=== PATIENT | male | born 1945 | race Two or more races ===

== ENCOUNTER 2017-10-24 10:45 | Observation (INO) | payer OTHER ==
--- NOTE | 2017-11-20 15:33 | GHP ---
[f rep st] PREOP HISTORY AND PHYSICAL DATE OF ADMISSION: 11/21/2017 HISTORY: This is a 72-year-old male who presents with left knee osteoarthritis. He has had a painfu l knee for many years, limiting motion and function. He has done viscosupplementation injections, he has tried bracing and has also tried physical therapy. His pain limits work activities, as well as recreation. Even activities of daily living alter his gait. His x-rays show significant left knee o steoarthritis that is tricompartment. His primary care physician is Dr. Javid Ibarra. PAST MEDICAL HISTORY: His surgical history includes a right rotator cuff repair, appendectomy, and l aparotomy for a bowel concern. MEDICATIONS: Terazosin 1 mg p.o. daily, Paxil 30 mg p.o. daily, and trazodone 150 mg p.o. ALLERGIES: He has no known drug allergies. SOCIAL HISTORY: He has still smokes about 4 cigarettes a day. REVIEW OF SYSTEMS: Negative for cardiopulmonary disease. PHYSICAL EXAMINATION: GENERAL: He is a well-developed, well-nourished male in no apparent distress. HEAD AND NECK: Normocephalic, atraumatic. CHEST: Clear. CARDIOVASCULAR: Regular rate and rhyth m. ABDOMEN: Soft. NEUROLOGIC: He is alert and oriented x3. EXTREMITIES: Examination of the left knee shows a small effusion. It has more varus alignment. It extends with about a 2 degree flexion contracture, bends about 120 degrees. Negative Mary Anne's but the endpoint is soft pseudolaxity medi ally. Lateral side is stable. NEUROVASCULAR: Exam is intact. X-rays show that the left knee has tricompartment osteoarthritis with degenerative lipping and subcho ndral sclerosis. There is narrowing of the joint space, especially in the medial compartment. There is an accessory ossicle near the patella. IMPRESSION: Left knee osteoarthritis. PLAN: Left total knee arthroplasty. Benefits and risks of surgery have been reviewed with the patie ra. He understands the risks include infection, damage to blood vessels or nerves, failure or loosen ing of components and need for revision, blood clot in the leg or lungs, bleeding and need for transf usion. I reviewed the rigorous nature of the rehabilitation. He has signed his consent form and wis hes to proceed. /[id number]/MODL
[2017-11-21] MEDS ORDERED: POVIDONE-IODINE 20 ML in SODIUM CL IRRIG SOLUTION 500 ML IRR ONE (06:00)
[2017-11-21] MEDS ORDERED: BUPI/epINEPH/KETOROLAC IU ONE (06:00)
[2017-11-21] MEDS ORDERED: ROPIVACAINE 0.2% 80 MG, EPINEPHrine 0.2 MG, KETOROLAC TROMETHAMINE 30 MG in SYRINGE 0 ML IU ONE (06:00)
[2017-11-21] MEDS ORDERED: TRANEXAMIC ACID 1,000 MG in NS (SYRINGE) 50 ML IV ONE (06:00)
[2017-11-21] MEDS ORDERED: LIDOCAINE 1% 2 ML INJ ONE (06:02)
[2017-11-21] MEDS ORDERED: ceFAZolin 2 GM/SWFI 2 GM/20 ML SYR IVP ONE ×2 (06:10→06:30)
[2017-11-21] MEDS ORDERED: DEXAMETHASONE 4 MG/ML VIAL IVP ONE (06:10)
[2017-11-21] MEDS ORDERED: ACETAMINOPHEN 325 MG TAB PO ONE (06:10)
[2017-11-21] MEDS ORDERED: GABAPENTIN 300 MG CAP PO ONE (06:10)
[2017-11-21] MEDS ORDERED: ONDANSETRON 4 MG/2 ML VIAL IVP ONE (06:10)
[2017-11-21] MEDS ORDERED: LR 1,000 ML IV ONE (06:10)
[2017-11-21] MEDS ORDERED: LIDOCAINE 1% 2 ML INJ ID PRN (06:10)
[2017-11-21] MEDS ORDERED: FAMOTIDINE 20 MG TAB PO ONE (06:10)
[2017-11-21] MEDS ORDERED: ceFAZolin 1 GM/5 ML SYR ONE (06:20)
[2017-11-21] MEDS ORDERED: MIDAZOLAM 2 MG/2 ML VIAL IVP ONE (07:18)
--- NOTE | 2017-11-21 07:18 | PDANEPAE ---
ANE History of Present Illness 72 yo for tka ANE Past Medical History - Cardiovascular History Hx Hypertension: No Hx Arrhythmias: No Hx Chest Pain: No Hx Coronary Artery / Peripheral Vascular Disease: Yes Hx CHF / Valvular Disease: No Hx Palpitations: No Cardiovascular History Comment: high chol - Pulmonary History Hx COPD: No Hx Asthma/Reactive Airway Disease: No Hx Recent Upper Respiratory Infection: No Hx Oxygen in Use at Home: No Hx Sleep Apnea: No Sleep Apnea Screening Result - Last Documented: Negative - Neurologic History Hx Cerebrovascular Accident: No Hx Seizures: No Hx Dementia: No - Endocrine History Hx Diabetes: No - Renal History Hx Renal Disorders: Yes Renal History Comment: BPH. ERECTILE DYSFUNCTION - Liver History Hx Hepatic Disorders: No - Neurological & Psychiatric Hx Hx Neurological and Psychiatric Disorders: Yes Neurological / Psychiatric History Comment: MILD ANXIETY - Cancer History Hx Cancer: No - Congenital Disorder History Hx Congenital Disorders: No - GI History Hx Gastrointestinal Disorders: No Gastrointestinal History Comment: reflux- on prilosec - Other Health History Other Health History: OSTEOARTHRITIS - Chronic Pain History Chronic Pain: Yes (LT KNEE) - Surgical History Prior Surgeries: TREVOR 07/2016. sm bowel resection 01/25/13 ANE Review of Systems Review of Systems: - Exercise capacity METS (RN): 4 METS ANE Patient History - Allergies Allergies/Adverse Reactions: oxycodone HCl [From OxyContin] Allergy (Intermediate, Verified 04/21/16 09:14) "freaks me out" - Home Medications Home medications: home medication list seen and reviewed Home Medications: PARoxetine HCL [Paxil 30mg (*)] 30 mg PO HS 07/10/12 [Last Taken 11/19/17] Multivitamins [Multivitamin (*)] 1 each PO DAILY 10/19/17 [Last Taken 11/18/17] Terazosin HCl [Hytrin 1 MG (*)] 3 mg PO HS 10/19/17 [Last Taken 11/20/17] traZODone [traZODone 150MG (*)] 150 mg PO HS 10/19/17 [Last Taken 11/18/17] - NPO status NPO Since - Liquids (Date): 11/21/17 NPO Since - Liquids (Time): 04:45 NPO Since - Solids (Date): 11/20/17 NPO Since - Solids (Time): 18:00 - Anes Hx Anes Hx: no prior problems - Smoking Hx Smoking Status: Light smoker - Family Anes Hx Family Hx Anesthesia Complications: none ANE Labs/Vital Signs - Vital Signs Blood Pressure: 140/78 Heart Rate: 61 Respiratory Rate: 18 O2 Sat (%): 93 Height: 5 ft 10 in Weight: 104.326 kg ANE Physical Exam - Airway Neck exam: FROM Mallampati Score: Class 2 Mouth exam: normal dental/mouth exam - Pulmonary Pulmonary: no respiratory distress - Cardiovascular Cardiovascular: regular rate and rhythym - ASA Status ASA Status: II ANE Anesthesia Plan Anesthesia Plan: spinal Regional Anesthesia: single shot NB
[2017-11-21] MEDS ORDERED: MIDAZOLAM 2 MG/2 ML VIAL ONE (07:19)
--- NOTE | 2017-11-21 07:19 | PDHPUP ---
History & Physical Update H&P update statement: This history and physical update is based on an assessment of the patient which was completed after admission or registration (within 24 hours), but prior to the surgery/procedure. H&P update: H&P reviewed & patient examined
[2017-11-21] MEDS ORDERED: PROPOFOL/EMULSION 500 MG/50 ML BOTTLE IV ONE (07:26)
[2017-11-21] MEDS ORDERED: PROPOFOL 200 MG/20 ML VIAL ONE (09:14)
[2017-11-21] MEDS ORDERED: ONDANSETRON 4 MG/2 ML VIAL IVP PRN ×2 (09:24→09:54)
[2017-11-21] MEDS ORDERED: NALOXONE HCL 0.4 MG/ML INJ IVP PRN (09:24)
[2017-11-21] MEDS ORDERED: PROMETHAZINE HCL 25 MG/ML INJ IVP PRN ×2 (09:24→09:54)
[2017-11-21] MEDS ORDERED: fentaNYL 100 MCG/2 ML INJ IVP PRN (09:24)
[2017-11-21] MEDS ORDERED: TEMAZEPAM 15 MG CAP PO PRN (09:54)
[2017-11-21] MEDS ORDERED: BISACODYL 10 MG SUPP PR PRN (09:54)
[2017-11-21] MEDS ORDERED: CYCLOBENZAPRINE 10 MG TAB PO PRN (09:54)
[2017-11-21] MEDS ORDERED: METOCLOPRAMIDE 10 MG/2 ML VIAL IVP PRN (09:54)
[2017-11-21] MEDS ORDERED: diphenhydrAMINE 25 MG CAP PO PRN (09:54)
[2017-11-21] MEDS ORDERED: oxyCODONE IR 5 MG TAB PO PRN (09:54)
[2017-11-21] MEDS ORDERED: ONDANSETRON DISINTEGRATING 4 MG TAB PO PRN (09:54)
[2017-11-21] MEDS ORDERED: MAGNESIUM HYDROXIDE 30 ML UDCUP PO PRN (09:54)
[2017-11-21] MEDS ORDERED: LACTULOSE 20 GM/30 ML UDCUP PO PRN (09:54)
[2017-11-21] MEDS ORDERED: PROMETHAZINE HCL 25 MG SUPPR PR PRN (09:54)
[2017-11-21] MEDS ORDERED: POLYETHYLENE GLYCOL 3350 17 GM PKT PO PRN (09:54)
[2017-11-21] MEDS ORDERED: DIPHENOXYLATE/ATROPINE LOMOTIL 1 TAB PO PRN (09:54)
[2017-11-21] MEDS ORDERED: KETOROLAC 30 MG/1 ML SDV IVP PRN (09:54)
[2017-11-21] MEDS ORDERED: LR 1,000 ML IV SCH (10:00)
[2017-11-21 11:20] VITALS: RESP 16
[2017-11-21] MEDS: ACETAMINOPHEN 325 MG TAB PO SCH ×3 (12:00→23:40)
[2017-11-21] MEDS ORDERED: ceFAZolin 2 GM/DEXTROSE 100 ML IV SCH (14:00)
--- NOTE | 2017-11-21 14:19 | POSTANESTH ---
Post Anesthetic Evaluation Cardiovascular Status: Normal, Stable Respiratory Status: Normal, Stable Level of Consciousness/Mental Status: Can Participate in Eval Pain Control: Adequate, Prn Tx Ordered Nausea/Vomiting Control: Adequate, Prn Tx Ordered Complications Possibly Related to Anesthesia: None Noted
--- NOTE | 2017-11-21 14:42 | GOP ---
[f rep st] OPERATIVE REPORT DATE OF OPERATION: 11/21/2017 SURGEON: Sen Griffith MD BLOOD DONOR RECRUITER SUPERVISOR: Benny Nolan SA. ANESTHESIOLOGIST: Dr. Angie Pham. PREOPERATIVE DIAGNOSIS: Left knee osteoarthritis. POSTOPERATIVE DIAGNOSIS: Left knee osteoarthritis. PROCEDURE PERFORMED: Left total knee arthroplasty. FINDINGS: SPECIMENS: Specimens include excised bone. ESTIMATED BLOOD LOSS: Minimal. INDICATIONS: This is a 72-year-old male who presents with history, exam and x-rays consistent with s evere tricompartment left knee osteoarthritis. He has tried multiple conservative measures through t he years including bracing, injections, and physical therapy. A left total knee arthroplasty is plan delmer. DESCRIPTION OF PROCEDURE: The patient was taken to the operating room in a seated position. Dr. Rufino zaman provides a spinal block, he was then placed under light IV sedation. A tourniquet was fit high on the left thigh. Rolled towel beneath the left hip to neutralize his rotation. He has a slight f lexion contracture. The left lower extremity was prepped and draped free with chlorhexidine in the u sual fashion. The limb was elevated, exsanguinated, the tourniquet inflated to 275 mmHg. I made a l ongitudinal incision in the midline, dissected through subcutaneous tissue and used a medial parapate llar arthrotomy. The patella has an accessory ossicle making it a bit more challenging to invert, so I did some soft tissue release around this ossicle, and I was able to invert the patella and I excis ed the accessory ossicle as it was a loose fragment. This still left plenty of substance of his alonzo lla. I measured its thickness at 25 mm. I removed 9 mm of cartilage and bone and sized the undersur face of the patella to a size 38. I drilled peg holes. With the trial component in place, this rest ored the thickness of the patella. I trimmed osteophytes around its edges. I flexed the knee, drill ed a commercial airline pilot hole in the distal femur using intramedullary alignment jig at 5 degrees of valgus, +2 ext ra cut and made a flat distal femoral cut. I extended the knee and used a spacer to estimate my tibi al cut. I sized the distal femur to a size 7, the cutting blocks allowed anterior, posterior, campho r cuts and notch cuts. The trial component size 7 was an excellent fit. I used a posterior and late ral retractors and extramedullary guide on the tibia. I dialed in the rotation posterior slope, and appropriate depth of cut going a little more conservative than my initial block spacer sangeetha. I skimm ed beneath the more arthritic medial side. I made sure that this had appropriate posterior slope and was perpendicular to the shaft of the tibia. I sized the tibial surface to a size 6. I dialed in i ts rotation with trial reductions and completed the tibial prep. All the components were removed. I used jet lavage irrigation. All components were cemented. I did a series of reductions and I found that a size 12 mm thick liner, provided appropriate full extension, appropriate collateral stability and good rollback in flexion. The patella tracked centrally. The size 12 mm articular insert was s napped into place and the tourniquet was let down after about 1 hour and 15 minutes. Irrigation was used with a Betadine solution, as well as saline with antibiotics. No drain was needed. I closed th e arthrotomy with interrupted ilhkoe-yp-nleda sutures of 0 Mersilene, subcutaneous tissue was closed with 2-0 Monocryl, and the skin was closed with leticia. The wound was dressed with Betadine-soaked Adaptic, 4 x 4, sterile Webril, and a long-leg ARTEM stocking was applied. There were no complications . DRAINS: No drain. COUNTS: All counts correct. TOURNIQUET TIME: 1 hour and 15 minutes. The patient was taken in stable condition to recovery. My surgical processor Waqas Nolan was a [facility] necessity for this total knee replacement. SUMMARY OF COMPONENTS: This is a [employer] knee. All components cemented. The femur is Oxinium, the polyethylene is cross-linked. The femur is size 7, tibia size 6, patella 38, and a 12 mm thick articular tray. /[id number]/MODL
[2017-11-21] MEDS: ceFAZolin 2 GM/SWFI 2 GM/20 ML SYR IVP SCH ×2 (14:46→22:24)
[2017-11-21] MEDS ORDERED: HYDROCODONE/APAP 5/325 TAB PO PRN (20:08)
[2017-11-21] MEDS: FAMOTIDINE 20 MG TAB PO SCH (20:37)
[2017-11-21] MEDS: SENNOSIDES/DOCUSATE SODIUM TAB PO SCH (20:37)
[2017-11-21] MEDS: ASPIRIN 325 MG TAB PO SCH (21:00)
[2017-11-21] MEDS ORDERED: TERAZOSIN HCL 1 MG CAP PO SCH (21:00)
[2017-11-22 04:56] VITALS: O2SAT 93
[2017-11-22] MEDS: ACETAMINOPHEN 325 MG TAB PO SCH (06:24)
--- NOTE | 2017-11-22 07:35 | SOAPPROG ---
SOAP Progress Note Assessment/Plan: Assessment: 11/22/17 POD#1 L TKA, little pain, xrayfine, Hct 34 Plan: 11/22/17 07:34 PT/OT and home, asa, celebrex, oxy Objective: Vital Signs Temp Pulse Resp BP Pulse Ox 37.1 C 66 16 121/81 H 93 11/22/17 04:00 11/22/17 04:00 11/22/17 04:00 11/22/17 04:00 11/22/17 04:00 Laboratory Results 11/22/17 04:25 11/21/17 11/22/17 11/23/17 05:59 05:59 05:59 Intake Total 3000 Output Total 3400 Balance -400 ICD10 Worksheet Patient Problems: Problems Problem Status Onset Osteoarthritis of left knee Acute - ICD10 Problem Qualifiers (1) Osteoarthritis of left knee
--- NOTE | 2017-11-22 07:42 | PDIAF ---
- Diagnosis Code Status: Full Code - Medication Management Discharge Medications: Medications to Continue on Transfer PARoxetine HCL [Paxil 30mg (*)] 30 mg PO HS 07/10/12 [Last Taken 11/19/17] Multivitamins [Multivitamin (*)] 1 each PO DAILY 10/19/17 [Last Taken 11/18/17] Terazosin HCl [Hytrin 1 MG (*)] 3 mg PO HS 10/19/17 [Last Taken 11/20/17] traZODone [traZODone 150MG (*)] 150 mg PO HS 10/19/17 [Last Taken 11/18/17] Aspirin [Aspirin 325 mg (*)] 325 mg PO DAILY tab 11/22/17 [Last Taken Unknown] celeCOXIB [Celebrex (*)] 200 mg PO DAILY #30 cap 11/22/17 [Last Taken Unknown] oxyCODONE IR [Oxycodone Ir (*)] 5 - 10 mg PO Q3HRS PRN #20 tab 11/22/17 [Last Taken Unknown] Discharge Medications: Refer to the Discharge Home Medication list for PRN reason. - Orders Services needed: Physical Therapy Diet Recommendation: no restrictions on diet Diet Texture: Regular Texture Diet Giovanni Stockings Discontinue Date: 2 weeks Wound Care Instructions: keep knee dressed and clean Sutures/[place] Site: knee leticia out in my office 2 weeks Activity/Weight Bearing Restrictions: wbat, full rom - Follow Up Care Current Providers and Referrals: Ernie Ibarra MD [Primary Care Provider] -
[2017-11-22] MEDS: ASPIRIN 325 MG TAB PO SCH (07:59)
[2017-11-22] MEDS: FAMOTIDINE 20 MG TAB PO SCH (07:59)
[2017-11-22] MEDS: SENNOSIDES/DOCUSATE SODIUM TAB PO SCH (07:59)
[2017-11-22 08:09] VITALS: BP 141/95; PULSE 61; TEMP 98.1
[2017-11-22] MEDS ORDERED: MULTIVITAMINS 1 EACH TAB PO SCH (09:00)
--- NOTE | 2017-11-22 16:06 | ASMTCMCOM ---
CM Note CM Note Notes: Pt medically stable for d/c with [facility] PT. Pt address/phone verified. Orders to be obtained via [employer] Family to transport. Date Signed: 11/22/2017 04:06 PM Electronically Signed By:ROSY Baig
--- NOTE | 2017-11-22 16:07 | ASDISCHSUM ---
Discharge Information Plan Status:Home with Home Health Medically Cleared to Leave: Discharge Date:11/22/2017 12:06 PM CM D/C Disposition:Home Health Service ADT D/C Disposition:Home Health Service Projected Discharge Date:11/22/2017 11:00 AM Transportation at D/C:Family Discharge Delay Reason: Follow-Up Date:11/22/2017 11:00 AM Discharge Slot: Final Diagnosis: Placement Information Referral Type:*Home Health Care Services Referral ID:[id number] Provider Name:[facility] Address 1:[address] Address 2: City:[place] Selection Factors: State:[place] Patient Contact Information Contact Name:ELIZABETH Relationship: Address:[address] Work Phone: [facility]:[place] Alternate Phone: State/Zip Code:[place] [address] Email: Financial Information Financial Class:Medicare Advantage Plans Primary Plan Desc:[facility] [employer] PLANS Primary Plan Number:[id number] Secondary Plan Desc: Secondary Plan Number: Assessment Information [facility] CM Progress Note CM Note CM Note Notes: Pt medically stable for d/c with [facility] PT. Pt address/phone verified. Orders to be obtained via [employer]. Family to transport. Date Signed: 11/22/2017 04:06 PM Electronically Signed By:ROSY Baig Intervention Information Intervention Type:*SOLIS-Signed Date of Service:11/21/2017 02:58 PM Patient Type:Observation Staff Member:Ewelina Mckeon Hours: Discipline: Severity: Comment:
== END 2017-11-22 12:06 | disposition home health service (06) ==
LOC: F3N 11-21 05:33
PROVIDERS: ADMIT Orthopaedic Surgery; ATTEND Orthopaedic Surgery
PROC: 0SRD0J9 Replacement of Left Knee Joint with Synthetic Substitute, Cemented, Open Approach (ICD-10-PCS; principal; 2017-11-21 07:30)
DX: M17.12 Unilateral primary osteoarthritis, left knee (principal); E78.5 Hyperlipidemia, unspecified
CPT/HCPCS: 27447; 73560; 88311; 97110; 97116; 97161; 97165; C1713; C1776; G0378; G8978; G8979; G8980; G8987; G8988; G8989; J0171; J0690; J1100; J1885; J2250; J2704

== ENCOUNTER → 2019-02-14 | Outpatient (CLI) | payer OTHER | LOC: FIMAGING 08:29 ==